=== PATIENT | male | born 1995 | race Caucasian/White ===

== ENCOUNTER 2017-11-20 12:33 | Emergency (ER) | payer SELFPAY ==
[2017-11-20 13:35] VITALS: BP 123/72; PULSE 60; RESP 18; TEMP 37.2; O2SAT 100; BMI 19.9
--- NOTE | 2017-11-20 13:45 | XR_ITS ---
XR shoulder RT min 2V COMPARISON: None HISTORY: Right shoulder pain after falling while is no border TECHNIQUE: 3 views right shoulder FINDINGS: The clavicle is intact. However there is mild superior displacement of the lateral clavicle at the AC joint. The acromion process of the scapula is intact. The humeral head and glenoid appear normal. IMPRESSION: Mild before AC separation right shoulder
--- NOTE | 2017-11-20 14:39 | HMH.EDUTC ---
[facility] – [place] Disposition Clinical Impression: Acromioclavicular joint separation Qualifiers: Encounter type: initial encounter Laterality: right Qualified Code(s): S43.101A - Unspecified dislocation of right acromioclavicular joint, initial encounter Disposition: Home, Self-Care Condition on Discharge: Good Instructions: DI for Prescription Opioid Use, DI for AC Joint Separation Additional Instructions: Read attached education * movement of right arm only as tolerated without pain. Do not move through the pain. * Rest * ice 15-20 mins 3-4 times a day * sling for support and swelling unless in shower. Be sure not too tight but not too loose either * Ibuprofen every 6 hours as needed for pain and inflammation. You had a toradol injection in clinic at 1445 so no ibuprofen for 6-8 hours. If pain still too severe with ibuprofen, ice, sling, then you can take the norco as needed. * As we discussed, norco is a controlled substance, a narcotic. This is a highly sought medication and can be one people steal. please safe guard. Also this is addicting as we discussed. Use only as recommended/prescribed for moderate to severe pain. You will only get this limited amount so you need to make them last. There are NO refills. Use only with ibuprofen, sling, ice and rest are not helping. Prescriptions: Hydrocod/Acet 5/325 mg [[place] 5/325mg tablet] 1 each PO Q6H PRN #10 tab PRN Reason: Moderate To Severe Pain Referrals: Riley Lopez MD [Staff Physician] - (Call office tomorrow morning. Report seen in [facility]. Diagnosed with AC joint seperation. 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 You are in a sling. Were told to call for follow up appointment. ) Forms: Work/School Release Time of Disposition: 15:09 Medical Decision Making Vital Signs: 11/20/17 13:35 Temperature 99 F Temperature Source Temporal Artery Scan Pulse Rate [Left Brachial] 60 Respiratory Rate 18 Blood Pressure [Left Arm] 123/72 Blood Pressure Mean [Left Arm] 89 Blood Pressure Source [Left Arm] Automatic Cuff Blood Pressure Position [Left Arm] Sitting 02 Sat by Pulse Oximetry 100 Oxygen Delivery Method Room Air Orders (Tests/Meds): ED MEDICATIONS Discontinued Medications Generic Name Dose Route Start Last Admin Trade Name Freq PRN Reason Stop Dose Admin Ketorolac Tromethamine 60 mg 11/20/17 14:40 11/20/17 15:21 Toradol 60mg/2ml Vial IM 11/20/17 14:41 60 mg ONCE ONE Administration - Radiology Data #1 Image(s): Shoulder (right) Image Reviewed: Yes I reviewed the patient's radiology image, Yes I have reviewed radiologist's interpretation, Yes I reviewed the patient's radiology image w/the ED provider Mild before AC separation right shoulder - Physician Consults Physician Consulted: Dr. Donis, ortho Time: 14:40 Reason -: Pt condition Comment/Response: Will return call. 1447: Spoke to Dr. Donis. He was not able to review xray. Read him radiologist report. Suggest sling and follow up with his office. Would be appropriate to give in 2-3 days of norco if pt appropriate for narcotics - Edna Inquiry Pt receiving controlled substance: Yes Edna was queried for this patient: Yes Reference #:: [id number] Risks and benefits of using a controlled substance: were discussed with pt by me Comment: no recs on edna, no prescriptions - Opioid Risk-Male Family hx alcohol abuse: N Family hx illegal drugs: N Family hx rx drug abuse: N Personal hx alcohol abuse: N Personal hx illegal drugs: N Personal hx rx drug abuse: N Age: 16-45 Mental health issues-ADD,OCD,Bipolar, etc: N Hx of depression: N [facility] – [place] HPI - General Stated complaint: right shoulder pain Time Seen by Provider: 11/20/17 14:40 Mode of Arrival: Ambulatory Source of Information: Patient Limitations: No Limitations Description of Symptoms (Recalled from Triage Doc. by RN): c/o rt shoulder pain following falling while snowboarding at 1100am today HEENT Symptoms (Recalled from RN notes): No Resp Symptoms (
--- NOTE | 2017-11-20 14:45 | ED_ITS ---
[facility] – [place] Disposition Clinical Impression: Acromioclavicular joint separation Qualifiers: Encounter type: initial encounter Laterality: right Qualified Code(s): S43.101A - Unspecified dislocation of right acromioclavicular joint, initial encounter Disposition: Home, Self-Care Condition on Discharge: Good Instructions: DI for Prescription Opioid Use, DI for AC Joint Separation Additional Instructions: Read attached education * movement of right arm only as tolerated without pain. Do not move through the pain. * Rest * ice 15-20 mins 3-4 times a day * sling for support and swelling unless in shower. Be sure not too tight but not too loose either * Ibuprofen every 6 hours as needed for pain and inflammation. You had a toradol injection in clinic at 1445 so no ibuprofen for 6-8 hours. If pain still too severe with ibuprofen, ice, sling, then you can take the norco as needed. * As we discussed, norco is a controlled substance, a narcotic. This is a highly sought medication and can be one people steal. please safe guard. Also this is addicting as we discussed. Use only as recommended/prescribed for moderate to severe pain. You will only get this limited amount so you need to make them last. There are NO refills. Use only with ibuprofen, sling, ice and rest are not helping. Prescriptions: Hydrocod/Acet 5/325 mg [[place] 5/325mg tablet] 1 each PO Q6H PRN #10 tab PRN Reason: Moderate To Severe Pain Referrals: Riley Lopez MD [Staff Physician] - (Call office tomorrow morning. Report seen in [facility]. Diagnosed with AC joint seperation. [employer] spoke to Dr. Lopez. You are in a sling. Were told to call for follow up appointment. ) Forms: Work/School Release Time of Disposition: 15:09 Medical Decision Making Vital Signs: 11/20/17 13:35 Temperature 99 F Temperature Source Temporal Artery Scan Pulse Rate [Left Brachial] 60 Respiratory Rate 18 Blood Pressure [Left Arm] 123/72 Blood Pressure Mean [Left Arm] 89 Blood Pressure Source [Left Arm] Automatic Cuff Blood Pressure Position [Left Arm] Sitting 02 Sat by Pulse Oximetry 100 Oxygen Delivery Method Room Air Orders (Tests/Meds): ED MEDICATIONS Discontinued Medications Generic Name Dose Route Start Last Admin Trade Name Freq PRN Reason Stop Dose Admin Ketorolac Tromethamine 60 mg 11/20/17 14:40 11/20/17 15:21 Toradol 60mg/2ml Vial IM 11/20/17 14:41 60 mg ONCE ONE Administration - Radiology Data #1 Image(s): Shoulder (right) Image Reviewed: Yes I reviewed the patient's radiology image, Yes I have reviewed radiologist's interpretation, Yes I reviewed the patient's radiology image w/the ED provider Mild before AC separation right shoulder - Physician Consults Physician Consulted: Dr. Donis, ortho Time: 14:40 Reason -: Pt condition Comment/Response: Will return call. 1447: Spoke to Dr. Donis. He was not able to review xray. Read him radiologist report. Suggest sling and follow up with his office. Would be appropriate to give in 2-3 days of norco if pt appropriate for narcotics - Edna Inquiry Pt receiving controlled substance: Yes [facility] was queried for this patient: Yes Reference #:: [id number] Risks and benefits of using a controlled substance: were discussed with pt by me Comment: no recs on edna, no prescriptions - Opioid Risk-Male Family hx alcohol abuse: N Family hx illegal drugs: N Family hx rx drug abuse: N Pers
== END 2017-11-20 15:40 | disposition home or self-care (01) ==
PROVIDERS: Emergency Provider Nurse Practitioner Family
DX: S43.101A Unspecified dislocation of right acromioclavicular joint, initial encounter (principal); V00.321A Fall from snow-skis, initial encounter; Y93.23 Activity, snow (alpine) (downhill) skiing, snowboarding, sledding, tobogganing and snow tubing; Y92.89 Other specified places as the place of occurrence of the external cause; F17.210 Nicotine dependence, cigarettes, uncomplicated
CPT/HCPCS: 73030; 96372; 99201; 99281